=== PATIENT | male | born 1960 | race Caucasian/White ===

== ENCOUNTER 2017-02-05 05:45 | Outpatient (CLI) | payer OTHER ==
[~2017-02-05] VITALS: Ht 181.6 cm; Wt 97.5 kg
[~2017-02-05 05:45] MED LIST: NAPR220C11 PO; PANT40TA2 PO; PANT40TA3 PO; SUCR1TAB PO; SUCR1TAB36 PO; TESTOSTERONE TP; WRF5T PO
[2017-02-05] MEDS ORDERED: THYR16.2 PO (11:01)
[2017-02-05] MEDS ORDERED: ALOE25CA2 PO (11:01)
[2017-02-05] MEDS ORDERED: TURM500C7 PO (11:01)
== END 2017-02-05 11:06 ==
LOC: PREOP 05:45
PROVIDERS: ATTEND Surgery
DX: Z01.818 Encounter for other preprocedural examination (principal); Z12.11 Encounter for screening for malignant neoplasm of colon; K22.70 Barrett's esophagus without dysplasia

== ENCOUNTER 2017-02-09 07:30 | Day surgery (SDC) | payer OTHER ==
[~2017-02-09] VITALS: Ht 181.6 cm; Wt 97.5 kg
[~2017-02-09 07:30] MED LIST changes: +ALOE25CA2 PO; +THYR16.2 PO; +TURM500C7 PO
[2017-02-09] MEDS ORDERED: NS IV 1000 ML 1,000 ML IV STA (07:40)
[2017-02-09] MEDS ORDERED: NALOXONE 0.4 MG/ML 1 ML (NARCAN) VIAL IVP PRN (07:45)
[2017-02-09] MEDS ORDERED: FLUMAZENIL (ROMAZICON) 0.1 MG/ML 5 ML VIAL INJ PRN (07:45)
[2017-02-09] MEDS ORDERED: HURRICAINE EXT TUBE (BENZOCAINE) XX PRN (07:45)
[2017-02-09] MEDS ORDERED: fentaNYL INJECTION 100 MCG/2 ML AMP ONE (07:51)
[2017-02-09] MEDS ORDERED: proPOfol 200 MG/20 ML (DIPRIVAN) VIAL IV ONE (07:51)
[2017-02-09 07:55] VITALS: BP 128/77
[2017-02-09] MEDS ORDERED: LIDOCAINE TOPICAL 4% 50 ML BTL TP ONE (08:15)
[2017-02-09] MEDS ORDERED: MIDAZOLAM 2 MG/2 ML (VERSED) VIAL ONE (08:26)
--- NOTE | 2017-02-09 09:05 | Progress Note-Post Operative ---
Post-Operative Progess Note Surgeon (s)/Research Project Coordinator (s) Surgeon VILMA SMITH DO Research Project Coordinator: na Pre-Operative Diagnosis gerd, barretts Post-Operative Diagnosis antral ulcers, gastritis, hiatal hernia, short segment barretts, normal colon Procedure & Operative Findings Date of Procedure 02/09/17 Procedure Performed/Findings egd c biopsies, colonoscopy Anesthesia Type per [facility] Estimated Blood Loss Estimated blood loss (mL): scant Specimens/Packing Specimens Removed antrum, ge junction VILMA SMITH DO Feb 09, 2017 9:05 am
[2017-02-09 09:30] VITALS: BP 143/79
[2017-02-09] MEDS ORDERED: SUCR1TAB36 PO (09:30)
--- NOTE | 2017-02-09 09:31 | Discharge Inst-Simple/Standard ---
Discharge Inst-Standard Discharge Medications New, Converted or Re-Newed RX: RX on Chart Patient Instructions/Follow Up Plan of Care/Instructions/FU: Take protonix 40 mg once a day Take carafate 1 gm 4 times a day no Alcohol Repeat colonoscopy and EGD in one year Follow up with Dr. Smith in 2 weeks Activity as Tolerated: Yes Discharge Diet: No Restrictions RICHELLE LA APRN Feb 09, 2017 09:31
[2017-02-09 10:00] VITALS: BP 138/74
--- NOTE | 2017-02-09 10:17 | OPERATIVE REPORT ---
DATE OF SERVICE: 02/09/2017 PREOPERATIVE DIAGNOSES: Gastroesophageal reflux disease, Lucas's screening colonoscopy. POSTOPERATIVE DIAGNOSES: Antral ulcers, gastritis, hiatal hernia, short segment Lucas's, normal colon. PROCEDURE: EGD with biopsies and colonoscopy. SURGEON: Sarah ANESTHESIA: Per MDA. ESTIMATED BLOOD LOSS: Scant. SPECIMENS: Antrum and GE junction. INDICATIONS: The patient is a 56-year-old male with history of Lucas esophagus. He is due for a screening colonoscopy. He understands the risks and benefits of procedure and wishes to proceed with procedure. Consent was signed and in the chart. PROCEDURE: The patient was taken to the endoscopy suite, placed in left lateral recumbent position. Timeout was performed. The scope was inserted in mouth, down the esophagus, stomach and into the duodenum without difficulty. There were no polyps, masses or ulcerations within the duodenum. The scope was then slowly retracted back into the stomach where there were erythematous changes and small antral ulcers present. Biopsies of the antrum were obtained. Scope was also retroflexed, noting a small hiatal hernia. No other pathology noted. Scope was returned to its normal position, slowly withdrawn back into the distal esophagus, noting a very short segment of Lucas's. Biopsies were obtained in all 4 quadrants of the short segment of Lucas's. Scope was then slowly retracted until completely removed, noting no other pathology. Digital rectal exam was performed. There were no palpable polyps, masses or ulcerations. Scope was inserted in the rectum and advanced all the way to the cecum with minimal difficulty. Prep was adequate with irrigation and suction. The scope was then slowly retracted back. There were no polyps, masses or ulcerations within the cecum, ascending, transverse, descending and sigmoid colon. In the rectum, there is no pathology noted. Scope was also retroflexed, noting no other pathology. Scope was returned to its normal position, slowly withdrawn until completely removed. The patient tolerated procedure well without any complications and was taken to recovery room in stable condition. RECOMMENDATIONS: The patient will need repeat colonoscopy in 10 years, unless family history of colon cancer, for which it would then be 5 years. If he has any problems prior to that, he should be reevaluated at that time. In terms of his Lucas's, we will follow up on pathology in approximately 2 to 3 weeks. He has a history of ulcers, which we will also have him on the Protonix and Carafate and see how he is doing. If no improvement, we may need to double his Protonix for a short period of time. I would recommend repeating his EGD in 1 year. Job ID: [id number] DocumentID: [id number] Dictated Date: 02/09/2017 09:09:00 Bar Steward Date: 02/09/2017 10:16:31 Dictated By: VILMA SMITH DO
[2017-02-09 10:35] VITALS: BP 138/74
== END 2017-02-09 10:35 | disposition home or self-care (01) ==
LOC: ENDO 07:30
PROVIDERS: ATTEND Surgery
DX: Z12.11 Encounter for screening for malignant neoplasm of colon (principal); K22.70 Barrett's esophagus without dysplasia; K25.9 Gastric ulcer, unspecified as acute or chronic, without hemorrhage or perforation; K29.70 Gastritis, unspecified, without bleeding; K44.9 Diaphragmatic hernia without obstruction or gangrene

== ENCOUNTER → 2017-06-03 | Outpatient (CLI) | payer OTHER ==
[~2017-06-03] VITALS: Ht 180.3 cm; Wt 97.5 kg
[~2017-06-03] MED LIST changes: +methylPREDNISolone 80 MG/ML (DEPO MEDROL) VIAL ONE
[2017-06-03 13:08] VITALS: BP 140/72
[2017-06-03 13:34] VITALS: BP 137/72
--- NOTE | 2017-06-09 13:50 | OPERATIVE REPORT ---
DATE OF SERVICE: 06/03/2017 DIAGNOSIS: Lumbar radiculopathy. PROCEDURE: Fluoroscopic guided interlaminar epidural steroid injection. PROCEDURE IN DETAIL: After obtaining informed consent from the patient, the patient's chart was reviewed. The patient was then brought to the procedure room and placed in the prone position. A timeout was performed. The back was prepped with antiseptic solution and under fluoro guidance, the patient's lumbar spine was identified at the level of L5-S1. The L5-S1 vertebra was identified with fluoro guidance and approximately 2 mL of 1.5% lidocaine solution was used to anesthetize the skin directly down to the pedicle of the L5-S1 and under fluoroscopic guidance, the tract was anesthetized up to the interlaminar space and the ligamentum flavum. This needle was withdrawn. Then, a 20-gauge 3.5 inch Tuohy needle was then directed following the same tract that was anesthetized with the spinal needle. Using loss of resistance, the epidural space was identified and then the syringe was switched for contrast solution which was injected, approximately 1 mL. After secondary confirmation of epidural access, another syringe was placed and 80 mg of Depo-Medrol was injected. The Tuohy needle was then flushed out with approximately 2 mL of the normal saline used from the loss of resistance syringe. Band-Aids were applied to all the procedure sites. The patient tolerated the procedure well and was taken to the recovery room in stable condition. COMPLICATIONS: None. Job ID: [id number] DocumentID: [id number] Dictated Date: 06/08/2017 13:13:56 Glazier Helper Date: 06/09/2017 03:22:28 Dictated By: CHANTELL JONES DO
--- NOTE | 2017-06-10 13:27 | OPERATIVE REPORT ---
DATE OF SERVICE: 06/03/2017 DIAGNOSIS: Lumbar radiculopathy. PROCEDURE: Fluoroscopic guided interlaminar epidural steroid injection. PROCEDURE IN DETAIL: After obtaining informed consent from the patient, the patient's chart was reviewed. The patient was then brought to the procedure room and placed in the prone position. A timeout was performed. The back was prepped with antiseptic solution and under fluoro guidance, the patient's lumbar spine was identified at the level of L5-S1. The L5-S1 vertebra was identified with fluoro guidance and approximately 2 mL of 1.5% lidocaine solution was used to anesthetize the skin directly down to the pedicle of the L5-S1 and under fluoroscopic guidance, the tract was anesthetized up to the interlaminar space and the ligamentum flavum. This needle was withdrawn. Then, a 20-gauge 3.5 inch Tuohy needle was then directed following the same tract that was anesthetized with the spinal needle. Using loss of resistance, the epidural space was identified and then the syringe was switched for contrast solution which was injected, approximately 1 mL. After secondary confirmation of epidural access, another syringe was placed and 80 mg of Depo-Medrol was injected. The Tuohy needle was then flushed out with approximately 2 mL of the normal saline used from the loss of resistance syringe. Band-Aids were applied to all the procedure sites. The patient tolerated the procedure well and was taken to the recovery room in stable condition. COMPLICATIONS: None. Job ID: [id number] DocumentID: [id number] Dictated Date: 06/08/2017 13:13:56 Historic Site Administrator Date: 06/09/2017 03:42:49 Dictated By: CHANTELL JONES DO
== END ==
LOC: CARD 08:05
PROVIDERS: ATTEND Pain Medicine Interventional Pain Medicine
DX: M54.16 Radiculopathy, lumbar region (principal); M51.37 Other intervertebral disc degeneration, lumbosacral region
CPT/HCPCS: 62323

== ENCOUNTER 2017-08-24 11:32 | Emergency (ER) | payer OTHER ==
[~2017-08-24] VITALS: Ht 180.3 cm; Wt 99.8 kg
[~2017-08-24 11:32] MED LIST changes: -methylPREDNISolone 80 MG/ML (DEPO MEDROL) VIAL ONE
[2017-08-24] MEDS ORDERED: OXYCODONE (12:16)
[2017-08-24] MEDS ORDERED: RT-ALBUINH IH (12:44)
[2017-08-24] MEDS ORDERED: METH4TAB PO (12:44)
[2017-08-24] MEDS ORDERED: BENZ-13 PO (12:44)
[2017-08-24] MEDS ORDERED: D-ME118S7 PO (12:44)
[2017-08-24] MEDS ORDERED: OSLT75C PO (12:44)
--- NOTE | 2017-08-24 12:44 | ED Cough/URI ---
General Chief Complaint: Cough/Cold/Flu Symptoms Stated Complaint: COUGH,CONGESTION Nursing Triage Note: AMB TO ROOM REORTS HAS HAD COUGH CONGESTION FOR 2 DAYS AND THE OXYCODONE NOT HELPING. Source: patient History of Present Illness Time seen by provider: 12:10 Initial Comments C/O COUGH AND CONGESTION SINCE YESTERDAY HAS HAD SUBJECTIVE FEVER C/O MILD HEADACHE C/O BODY ACHES PT'S MAIN COMPLAINT IS GENERALIZED BACK PAIN --PT HAS CHRONIC BACK PAIN AND TAKES OXYCODONE DAILY FOR IT, BUT STATES IT IS NOT HELPING NO PARESTHESIAS OR MOTOR DEFICITS NO RADIATION OF PAIN NO PROBLEMS URINATING NO CHEST PAIN OR SHORTNESS OF BREATH PT STATES HE DOES HAVE ASTHMA BUT HAS NOT USED HIS INHALER IN A VERY LONG TIME AND IT A LONG TIME AGO. PT DID RECEIVE A FLU VACCINATION THIS YEAR PT'S IS CURRENTLY UNDERGOING CHEMO FOR CANCER--NEXT TREATMENT IS DUE TOMORROW PT STATES SHE IS NOT HAVING ANY SYMPTOMS PT STATES THAT HER ONCOLOGIST GAVE HER A PRESCRIPTION FOR TAMIFLU,IN CASE SHE STARTED HAVING SYMPTOMS-- BUT SHE HAS NOT TAKEN/FILLED IT YET PCP: DR. MAKI Allergies and Home Medications Allergies Coded Allergies: No Known Drug Allergies (Verified , 02/09/17) Home Medications Albuterol Sulfate 1 Puff Puff, 2 PUFF IH Q4H, #1 Prescribed by: HUGH ELLIS on 08/24/17 1244 Aloe Vera 25 Mg Capsule, 25 MG PO DAILY, (Reported) Benzonatate 100 Mg Capsule, 1-2 TAB PO TID, #30 Prescribed by: HUGH ELLIS on 08/24/17 1244 D-Methorphan Hb/Prometh HCl 118 Ml Syrup, 1-2 TSP PO Q4H, #120 Prescribed by: HUGH ELLIS on 08/24/17 1244 Methylprednisolone 4 Mg Tab.ds.pk, 4 MG PO UD, #1 Prescribed by: HUGH ELLIS on 08/24/17 1244 Oseltamivir Phosphate 75 Mg Cap, 75 MG PO BID, #10 Prescribed by: HUGH ELLIS on 08/24/17 1244 Pantoprazole Sodium 40 Mg Tablet.dr, 40 MG PO DAILY, (Reported) [Oxycodone] , (Reported) [Testosterone Cream] , TP DAILY, (Reported) Constitutional: see HPI, fever, weakness EENTM: see HPI, nose congestion, No throat pain Respiratory: see HPI, cough, No short of breath, No wheezing Cardiovascular: no symptoms reported, No chest pain Gastrointestinal: no symptoms reported, No nausea, No vomiting Genitourinary: no symptoms reported Musculoskeletal: see HPI, back pain, other (BODY ACHES) Skin: no symptoms reported, No rash Psychiatric/Neurological: See HPI, Headache, Denies Numbness, Denies Paresthesia, Denies Tingling, Denies Tremors, Denies Weakness Hematologic/Lymphatic: No Symptoms Reported Immunological/Allergic: no symptoms reported Past [place]-Bjoqig-Zbfcje Hx Patient Social History Alcohol Use: Denies Use Recreational Drug Use: No Smoking Status: Never a Smoker Recent Foreign Travel: No Contact w/Someone Who Travel: No Recent Infectious Disease Expo: No Recent Hopitalizations: No Seasonal Allergies Seasonal Allergies: Yes Surgeries History of Surgeries: Yes (LEFT KNEE SCOPE X2, SHOULDER SURGERY) Surgeries: Orthopedic Respiratory History of Respiratory Disorde: Yes Respiratory Disorders: Asthma Cardiovascular History of Cardiac Disorders: Yes Cardiac Disorders: Deep Vein Thrombosis Neurological History of Neurological Disord: No Reproductive System Hx Reproductive Disorders: No Sexually Transmitted Disease: No HIV/AIDS: No Gastrointestinal History of Gastrointestinal Di: Yes Gastrointestinal Disorders: Gastroesophageal Reflux, Lucas's Esophagus, Diverticulosis, Polyps, Esophagitis Musculoskeletal History of Musculoskeletal Dis: Yes (BULGING DISCS) Musculoskeletal Disorders: Degenerate Disk Disease, Arthritis, Chronic Back Pain Endocrine History of Endocrine Disorders: Yes (LOW TESTOSTERONE) HEENT History of HEENT Disorders: No Loss of Vision: Bilateral Hearing Impairment: Denies Cancer History of Cancer: No Psychosocial History of Psychiatric Problem: No Integumentary History of Skin or Integumenta: No Blood Transfusions History of Blood Disorders: No Adverse Reaction to a Blood Tr: No (N/A) Physical Exam Vital Signs Vital Sign - Last 12Hours 08/24/17 08/24/17 12:01 12:55 Temp 97.3 Pulse 100 Resp 18 B/P (MAP) 127/77 (94) Pulse Ox 98 O2 Delivery Room Air Capillary Refill : Less Than 3 Seconds General Appearance: WD/WN, no apparent distress (BUT SQUATTING ON FLOOR, LEANING OVER THE BED) HEENT: PERRL/EOMI, normal ENT inspection, TMs normal, pharynx normal Neck: non-tender, full range of motion, supple, normal inspection Respiratory: normal breath sounds, no respiratory distress, no accessory muscle use Cardiovascular: regular rate, rhythm, no edema, no JVD, no murmur Gastrointestinal: normal bowel sounds, non tender, soft Extremities: normal inspection, no pedal edema, normal capillary refill Neurologic/Psychiatric: tower technician II-XII nml as tested, no motor/sensory deficits, alert, normal mood/affect, oriented x 3 Skin: normal color, warm/dry, No rash Progress/Results/Core Measures Suspected Sepsis Recent Fever Within 48 Hours: No Infection Criteria Present: None New/Unexplained Altered Menta: No Sepsis Screen: No Definite Risk Sepsis Diagnosis: SIRS Temperature:97.3 Pulse: 100 Respiratory Rate: Blood Pressure 127 /77 Mean: 94 Results/Orders Micro Results Microbiology 08/24/17 Influenza Types A,B Antigen (LENIN) - Final, Complete My Orders Orders - HUGH ELLIS DO Influenza A And B Antigens (08/24/17 12:09) Methylprednisolone Sod Succ (Solu-Medrol (08/24/17 12:45) Medications Given in ED Current Medications Medications Dose Ordered Sig/Mohit Route Start Time Stop Time Status Last Admin Dose Admin Methylprednisolone Sodium Succinate 125 mg ONCE ONCE IM 08/24/17 12:45 08/24/17 12:46 DC 08/24/17 12:52 125 MG Vital Signs/I&O Vital Sign - Last 12Hours 08/24/17 08/24/17 12:01 12:55 Temp 97.3 97.3 Pulse 100 100 Resp 18 B/P (MAP) 127/77 (94) Pulse Ox 98 98 O2 Delivery Room Air Capillary Refill : Less Than 3 Seconds Blood Pressure Mean: 94 Progress Note : Progress Note PT REQUESTS PREDNISONE FOR HIS BACK PAIN--STATES IT ALWAYS HELPS ADVISED PT THAT SHOULD START TAMIFLU TODAY, AND SHE SHOULD CONTACT HER ONCOLOGIST TODAY REGARDING TREATMENT SCHEDULED FOR TOMORROW. Departure Impression Impression: Primary Impression: Influenza B Additional Impression: Exacerbation of chronic back pain Disposition: 01 HOME, SELF-CARE Condition: Stable Departure-Patient Inst. Referrals: MI MAKI MD (PCP/Family) Primary Care Physician Patient Instructions: CHRONIC PAIN, Flu, Adult (DC) Add. Discharge Instructions: LOTS OF CLEAR LIQUIDS--WATER, BROTH, JELLO, GATORADE TYLENOL AND MOTRIN NEEDED FOR PAIN OR FEVER CONTINUE YOUR OXYCODONE NEEDED FOR PAIN FOLLOW UP WITH YOUR DR IN 3-4 DAYS IF NO BETTER All discharge instructions reviewed with patient and/or family. Voiced understanding. Scripts Albuterol Sulfate (PROAIR HFA) 1 Puff Puff 2 PUFF IH Q4H for BREATHING, #1 UNIT Prov: HUGH ELLIS DO 08/24/17 D-Methorphan Hb/Prometh HCl (Promethazine-Dm Syrup) 118 Ml Syrup 1-2 TSP PO Q4H for Cough, #120 ML Prov: HUGH ELLIS DO 08/24/17 Benzonatate (Tessalon Perle) 100 Mg Capsule 1-2 TAB PO TID for Cough, #30 CAP Prov: HUGH ELLIS DO 08/24/17 Methylprednisolone (Medrol) 4 Mg Tab.ds.pk 4 MG PO UD, #1 PKG Prov: HUGH ELLIS DO 08/24/17 Oseltamivir Phosphate (Tamiflu) 75 Mg Cap 75 MG PO BID, #10 CAP Prov: HUGH ELLIS DO 08/24/17 HUGH ELLIS DO Aug 24, 2017 12:44
[2017-08-24] MEDS ORDERED: methylPREDNISolone 125 MG (Solu-MEDROL) VIAL IM ONE (12:45)
[2017-08-24 12:55] VITALS: BP 127/77
== END 2017-08-24 12:55 | disposition home or self-care (01) ==
LOC: EDUNIT# 11:32 → ER 11:34
DX: J10.1 Influenza due to other identified influenza virus with other respiratory manifestations (principal); M54.5 Low back pain; G89.29 Other chronic pain; J45.909 Unspecified asthma, uncomplicated; K21.9 Gastro-esophageal reflux disease without esophagitis; Z86.718 Personal history of other venous thrombosis and embolism
CPT/HCPCS: 87804; 99284

== ENCOUNTER → 2019-01-18 | Outpatient (CLI) | payer OTHER ==
[~2019-01-18] MED LIST changes: +BENZ100C18 PO; +D-ME118S7 PO; +METH4TAB PO; +OSLT75C PO; +OXYCODONE; +RT-ALBUINH IH
== END | disposition home or self-care (01) ==
LOC: PREOP 05:46
PROVIDERS: ATTEND Internal Medicine
DX: Z01.818 Encounter for other preprocedural examination (principal)

== ENCOUNTER 2019-01-19 06:56 | Day surgery (SDC) | payer OTHER ==
--- NOTE | 2019-01-18 06:11 | HISTORY AND PHYSICAL ---
DATE OF SERVICE: EGD HISTORY AND PHYSICAL HISTORY OF PRESENT ILLNESS: The patient is a 58-year-old white male seen in the office on the , who noted that he was feeling well on Wednesday, went for a long bike ride in the [place] without difficulty. He had a hamburger and fries, did not note any problems with that meal on Wednesday afternoon, came home, had a piece of ham, and rather abruptly after eating noted central and lower precordial chest pain with a sensation of fullness. Initially, water would not go down and there is some regurgitation. Several hours later, he still noted pain, but was able to get liquids down without difficulty. He has remained on liquids since. He has been able to swallow pantoprazole and he has been dissolving Carafate and has resumed Carafate. He reports he was told that he had a twisted hiatal hernia by Dr. Smith as well as Lucas's change in his esophagus two or three years ago at the time of his last endoscopy. He denies any past history of esophageal stricture with a need for esophageal dilatation. He is not aware of any family history for esophageal cancer or anyone else in the family with Lucas's change. He has had difficulty with keeping his weight down and denies melena or bright red blood per rectum. PAST SURGICAL HISTORY: He has had no past GI tract surgeries. PAST MEDICAL HISTORY: Significant for lumbar radiculopathy predominantly L4-L5 and L5-S1, left side, but he has had epidural injections for the last one over a year ago. He has been on testosterone therapy in the past, but to my knowledge this was done at a wellness center and he has not had any documented low testosterone levels in our office and is not currently on replacement therapy after discussion. He has a history of reactive depression following the loss of his tragically the breast cancer in her mid 50s. PHYSICAL EXAMINATION: GENERAL: Revealed somewhat anxious appearing white male, in no acute distress. He is able to swallow water without difficulty with no choking nor coughing. VITAL SIGNS: Blood pressure was 114/70 with a heart rate of 76 and regular. HEENT: Unremarkable. He is a Mallampati class 2 oropharyngeal configuration with no pharyngeal erythema or exudate being noted. NECK: Revealed no JVD, adenopathy or bruits. CHEST: Clear to auscultation. CARDIOVASCULAR: Reveals regular rate and rhythm without murmur, S3 or S4. ABDOMEN: Soft, supple without mass or organomegaly. There is epigastric discomfort to palpation without rebound or guarding. No evidence for abdominal aortic aneurysm is noted to palpation. Bowel sounds are positive. No bruits are noted. EXTREMITIES: Reveal no cyanosis, clubbing or edema. ASSESSMENT AND PLAN: For surveillance purposes due to the past Lucas's as well as findings suspicious for the possibility of esophageal stricture with dysphagia to solids, the patient is set up for an EGD , the . He is to continue soft solids only and advised to increase pantoprazole to 40 mg b.i.d. I discussed that dilatation may be necessary and that we would be obtaining biopsies and discussed Lucas's issues further as well as hiatal hernia issues further. He will continue to sleep with the head of his bed elevated. Job ID: [id number] DocumentID: [id number] Dictated Date: 01/17/2019 11:13:08 Keysmith Date: 01/17/2019 11:59:47 Dictated By: CARLOS BIRCH MD
[~2019-01-19] VITALS: Ht 180.3 cm; Wt 99.8 kg
[2019-01-19] MEDS ORDERED: D5 LR IV SOLUTION 1,000 ML IV ONE (07:07)
[2019-01-19] MEDS ORDERED: LIDOCAINE JELLY 2% 6 ML SYRINGE MM PRN (07:15)
[2019-01-19] MEDS ORDERED: HURRICAINE EXT TUBE (BENZOCAINE) XX PRN (07:15)
[2019-01-19] MEDS ORDERED: D5 LR IV SOLUTION 1,000 ML IV STA (07:15)
[2019-01-19] MEDS ORDERED: MIDAZOLAM 2 MG/2 ML (VERSED) VIAL IVP ONE (07:15)
[2019-01-19] MEDS ORDERED: fentaNYL INJECTION 100 MCG/2 ML AMP IVP ONE (07:15)
[2019-01-19 07:25] VITALS: BP 140/80
[2019-01-19] MEDS ORDERED: SUCR1TAB36 PO (07:29)
[2019-01-19] MEDS ORDERED: MIDAZOLAM 2 MG/2 ML (VERSED) VIAL ONE ×5 (07:34→08:41)
[2019-01-19] MEDS ORDERED: LIDOCAINE JELLY 2% 6 ML SYRINGE ONE (07:34)
[2019-01-19] MEDS ORDERED: fentaNYL INJECTION 100 MCG/2 ML AMP ONE (07:34)
[2019-01-19] MEDS ORDERED: HURRICAINE EXT TUBE (BENZOCAINE) ONE (07:35)
--- NOTE | 2019-01-19 08:57 | Pre-Op Note & Conscious Sedat ---
Pre-Operative Progress Note H&P Reviewed The H&P was reviewed, patient examined and no changes noted. Date H&P Reviewed: January 19, 2019 Time H&P Reviewed: 07:20 Conscious Sedation Pre-Proced ASA Score 1 For ASA 3 and 4: Consider anesthesia and medical clearance. Also, for patients with a history of failed moderate sedation consider anesthesia. Airway Lungs Heart ASA score ASA 1: a normal healthy patient ASA 2: a patient with a mild systemic disease (mid diabetes, controlled hypertension, obesity ASA 3: a patient with a severe systemic disease that limits activity (angina, COPD, prior Myocardial infarction) ASA 4: a patient with an incapacitating disease that is a constant threat to life (CHF, renal failure) ASA 5: a moribund patient not expected to survive 24 hrs. (ruptured aneurysm) ASA 6: a declared brain- patient whose organs are being harvested. For emergent operations, add the letter E after the classification Mallampati Classification Grade 3 Sedation Plan Analgesia, Amnesia, Plan communicated to team members, Discussed options with patient/fam, Discussed risks with patient/fam The patient is an appropriate candidate to undergo the planned procedure, sedation, and anesthesia. The patient immediately re-assessed prior to indication. CARLOS BIRCH MD January 19, 2019 08:57
[2019-01-19 09:15] VITALS: BP 138/69
[2019-01-19 09:40] VITALS: BP 116/74
[2019-01-19 09:50] VITALS: BP 116/74
--- NOTE | 2019-01-19 21:45 | OPERATIVE REPORT ---
DATE OF SERVICE: EGD SUMMARY EGD is performed for evaluation of epigastric and right upper quadrant pain with dysphagia and reported past history of Lucas's. The patient was placed in the left lateral decubitus position. The endoscope was inserted in the oral cavity and under direct visualization, esophagus was intubated. The endoscope was passed down the esophagus through the stomach and the second portion of the duodenum. Careful inspection was made as the endoscope was withdrawn. The patient tolerated the procedure. FINDINGS: The posterior pharynx, arytenoid aperture and true and false vocal folds were unremarkable. No evidence for erythema was noted. The epiglottis was unremarkable. Proximal and mid esophagus were unremarkable. There is a small sliding hiatal hernia present with questionable short segment Lucas's. No evidence for nodularity was noted. No evidence for erosive esophagitis or stricture formation is noted. There is no evidence to suggest a mechanical obstruction. Four quadrant biopsies were obtained from or just below the Z line that was noted 38 cm from the incisoral orifice. The cardia, fundus, antrum, pylorus, pyloric channel, duodenal bulb and second portion of duodenum were unremarkable with no evidence for gastritis or peptic ulcer disease. ASSESSMENT: Small sliding hiatal hernia is present with questionable short segment Lucas's change without evidence for erosive esophagitis or obstruction. Advised the patient continue proton pump inhibitor therapy. We will await biopsy results and if it continues to be symptomatic, we will need to look into a biliary pathology, cholecystitis etc. The patient was advised to adhere to a low fat diet in the interim and I am his primary care provider. Job ID: [id number] DocumentID: [id number] Dictated Date: 01/19/2019 18:07:00 Materials Buyer Date: 01/19/2019 21:44:44 Dictated By: CARLOS BIRCH MD [facility]
== END 2019-01-19 09:50 | disposition home or self-care (01) ==
LOC: ENDO 06:56
PROVIDERS: ATTEND Internal Medicine
DX: K21.9 Gastro-esophageal reflux disease without esophagitis (principal); K44.9 Diaphragmatic hernia without obstruction or gangrene
CPT/HCPCS: 88305

== ENCOUNTER 2021-07-21 17:18 | Emergency (ER) | payer OTHER ==
[~2021-07-21] VITALS: Ht 182.9 cm; Wt 102.8 kg
[~2021-07-21 17:18] MED LIST changes: -D-ME118S7 PO; -PANT40TA3 PO; +PANT40TA52 PO; +PROM118S5 PO
[2021-07-21] MEDS ORDERED: LIDOCAINE 1% INJ 20 ML 20 ML VIAL INJ STA (17:51)
--- NOTE | 2021-07-21 17:52 | ED Upper Extremity ---
General Chief Complaint: Laceration Stated Complaint: LT INDEX FINGER LAC Nursing Triage Note: PT AMBULATE TO ROOM FS01 WITH C/O LAC TO LEFT INDEX FINGER. PT STATES HE WAS "MESSING" WITH HIS POCKET KNIFE AND IT SLIPPED AND CUT FINGER. Source: patient History of Present Illness Date Seen by Provider: Jul 21, 2021 Time Seen by Provider: 17:27 Initial Comments 60-year-old male presenting with laceration to the left index finger. He reports he was messing with his pocket knife and it was really sharp so it slipped and cut his finger. He denies any numbness or tingling. He has last had a tetanus shot more than 5 years ago. He denies any other injuries. He was having difficulty getting the bleeding controlled so he came to the ED. This occurred just prior to arrival. Onset: just prior to arrival Severity: mild Pain/Injury Location: left 2nd finger Method of Injury: incised Modifying Factors: Worse With Movement Allergies and Home Medications Allergies Coded Allergies: No Known Drug Allergies (Verified , 02/09/17) Patient Home Medication List Home Medication List Reviewed: Yes Albuterol Sulfate (Proair Hfa) 1 Puff Puff, 2 PUFF IH Q4H Prescribed by: HUGH ELLIS on 08/24/17 1244 Pantoprazole Sodium (Pantoprazole Sodium) 40 Mg Tablet.dr, 40 MG PO DAILY, (Reported) Entered as Reported by: CHRISTI KEENAN on 12/26/15 1250 Sucralfate (Carafate) 1 Gm Tablet, 1 GM PO QID, (Reported) Entered as Reported by: KELLIE HERRERA on 01/19/19 0729 Review of Systems Constitutional: No chills, No fever EENTM: no symptoms reported Respiratory: no symptoms reported Cardiovascular: no symptoms reported Gastrointestinal: no symptoms reported Genitourinary: no symptoms reported Musculoskeletal: see HPI Skin: see HPI Psychiatric/Neurological: No Symptoms Reported; Denies Numbness, Denies Paresthesia Past Rwufkgh-Htrbmn-Wvbqel Hx Patient Social History Tobacco Use?: No Smoking Status: Never a Smoker Smokeless Tobacco Frequency: Never a User Use of E-Cig and/or Vaping Carlos Eduardo: Never a User Substance use?: No Alcohol Use?: Yes Alcohol Frequency: Once in a while Pt feels they are or have been: No Seasonal Allergies Seasonal Allergies: Yes Past Medical History Surgeries: Yes (LEFT KNEE SCOPE X2, SHOULDER SURGERY) Orthopedic Respiratory: Yes Asthma Cardiac: Yes Deep Vein Thrombosis Neurological: No Reproductive Disorders: No Sexually Transmitted Disease: No HIV/AIDS: No Gastrointestinal: Yes Gastroesophageal Reflux, Lucas's Esophagus, Diverticulosis, Polyps, Es ophagitis Musculoskeletal: Yes (BULGING DISCS) Degenerate Disk Disease, Arthritis, Chronic Back Pain Endocrine: Yes (LOW TESTOSTERONE) HEENT: No Loss of Vision: Bilateral Hearing Impairment: Denies Cancer: No Psychosocial: No Integumentary: No Blood Disorders: No Adverse Reaction/Blood Tranf: No (N/A) Physical Exam Vital Signs Vital Signs - First Documented 07/21/21 07/21/21 17:37 18:52 Temp 36.2 Pulse 74 Resp 17 B/P (MAP) 146/62 (90) Pulse Ox 98 O2 Delivery Room Air Capillary Refill : Less Than 3 Seconds Height, Weight, BMI Height: 5'11.00" Weight: 220lbs. 0.0oz. [id number]; 30.00 BMI Method:Stated General Appearance: WD/WN, no apparent distress Cardiovascular: normal peripheral pulses Wrist: Yes normal inspection, Yes non-tender, Yes no evidence of injury, Yes normal ROM Hand: normal ROM, Left, laceration (index finger distal phalanx lateral a spect), soft tissue tenderness (mild at the site of laceration) Neurologic/Tendon: normal sensation, normal motor functions, normal tendon functions Neurologic/Psychiatric: senior physician II-XII nml as tested, no motor/sensory deficits, alert, oriented x 3 Skin: normal color, warm/dry Procedures/Interventions Wound Location: Upper Extremities (left index finger) Wound Length (cm): 1.4 Wound's Depth, Shape: flap (V shaped flap), sub Q Wound Explored: clean Anesthesia: 1% Lidocaine (6 mL digital ring block) Volume Anesthetic (ccs): 6 Suture: Ethlion Suture Size: 5-0 Number of Sutures: 3 Layer Closure?: 1 Sterile Dressing Applied?: Yes Progress After obtaining verbal consent from the patient the wound was cleaned with chlorhexidine and saline. The finger was anesthetized using 1% plain lidocaine in a digital ring block. A total of 6 mL were infiltrated. Then a turnicot was applied to help with hemostasis and bleeding as well as holding the anesthetic in place. Using 5-0 Ethilon a total of 3 simple interrupted stitches were placed in the flap to hold it down. One at the tip and one on each of the sides. Patient tolerated procedure well without any immediate complication. A turnicot was removed and wound was cleaned. A clean sterile dressing was applied by the nurses. Counseled on follow-up and return precautions. Keep dry for the first 24 hours then may wash with soap and water but do not soak it. May apply antibiotic ointment and a new dressing 2-3 times a day as needed. Stitches out in at least 10 to 14 days. Tetanus booster was updated during this visit Progress/Results/Core Measures Results/Orders My Orders Orders - ELVER CHICAS MD Lidocaine 1% Inj 20 Ml (Xylocaine 1% Inj (07/21/21 17:51) Dipht,Pertuss(Acell),Tet Adult (Boostrix (07/21/21 18:00) Suture Set At Bedside (07/21/21 17:51) Medications Given in ED Current Medications Medications Dose Ordered Sig/Mohit Route Start Time Stop Time Status Last Admin Dose Admin Diphtheria/ Tetanus/Acell Pertussis 0.5 ml ONCE ONCE IM 07/21/21 18:00 07/21/21 18:01 DC 07/21/21 18:16 0.5 ML Vital Signs/I&O 07/21/21 07/21/21 17:37 18:52 Temp 36.2 Pulse 74 78 Resp 17 16 B/P (MAP) 146/62 (90) 137/88 Pulse Ox 98 O2 Delivery Room Air Room Air Blood Pressure Mean: 90 Progress Progress Note #1: Progress Note Patient stated it was more than 5 years since his last tetanus. Patient will be given update here. He was soaking his finger in chlorhexidine and sterile water while I had to perform another procedure on another patient that arrived prior to him. Progress Note #2: Progress Note Patient tolerated procedure to repair the laceration well without any immediate complications. Counseled on follow-up and return precautions. Stitches out in 10 to 14 days. Departure Impression Primary Impression: Laceration of left index finger without foreign body without damage to nail Qualified Codes: S61.211A - Laceration without foreign body of left index finger without damage to nail, initial encounter Disposition: 01 HOME, SELF-CARE Condition: Stable Departure-Patient Inst. Decision time for Depature: 18:45 Referrals: CARLOS BIRCH MD (PCP/Family) Primary Care Physician Patient Instructions: Laceration Repair With Stitches ED, Common Finger Injuries ED Add. Discharge Instructions: Keep the wound clean and dry for the first 24 hours. After that you could remove the dressing and wash your hands like normal. No soaking or keeping your hands in water for longer than it takes to clean them. After the first 24 hours you could wash with soap and water and then apply antibiotic ointment and cover with a dressing especially if the wound might get dirty. If signs of infection such as redness streaking up your finger and hand, pus draining from the wound, fever of 101 Fahrenheit then be seen sooner otherwise follow-up through the clinic or ER for removal of stitches The stitches should come out in 10 to 14 days and can be removed in the clinic or here in the ER. All discharge instructions reviewed with patient and/or family. Voiced understanding. ELVER CHICAS MD Jul 21, 2021 17:52
[2021-07-21] MEDS ORDERED: TETANUS,DIPTH,PERTUSS P/F (BOOSTRIX) 0.5 ML VIAL IM ONE (18:00)
[2021-07-21 18:52] VITALS: BP 137/88
== END 2021-07-21 18:52 | disposition home or self-care (01) ==
LOC: EDUNIT# 17:18 → ER FS 17:19
DX: S61.211A Laceration without foreign body of left index finger without damage to nail, initial encounter (principal); J45.909 Unspecified asthma, uncomplicated; K21.9 Gastro-esophageal reflux disease without esophagitis; Z23 Encounter for immunization; Z79.899 Other long term (current) drug therapy; W26.0XXA Contact with knife, initial encounter
CPT/HCPCS: 90715; 99281

== ENCOUNTER → 2023-06-14 | Outpatient (CLI) | payer OTHER ==
[~2023-06-14] MED LIST changes: +ALBU8.5H6 IH; -RT-ALBUINH IH
[2023-06-14 11:51] LABS: BASOPHILS % (AUTO) 0 % (0-10); EOSINOPHILS % (AUTO) 0 % (0-10); HEMATOCRIT 46 % (40-54); HEMOGLOBIN 15.9 g/dL (13.3-17.7); LYMPHOCYTES # (AUTO) 0.5 10^3/uL (1.0-4.0); LYMPHOCYTES % (AUTO) 4 % (12-44); MEAN CORPUSCULAR HEMOGLOBIN 31 pg (25-34); MEAN CORPUSCULAR HGB CONC 35 g/dL (32-36); MEAN CORPUSCULAR VOLUME 89 fL (80-99); MEAN PLATELET VOLUME 8.8 fL (9.0-12.2); MONOCYTES # (AUTO) 0.3 10^3/uL (0.0-1.0); MONOCYTES % (AUTO) 3 % (0-12); NEUTROPHILS # (AUTO) 10.5 10^3/uL (1.8-7.8); NEUTROPHILS % (AUTO) 92 % (42-75); PLATELET COUNT 168 10^3/uL (130-400); WHITE BLOOD COUNT 11.3 10^3/uL (4.3-11.0)
[2023-06-14 12:22] LABS: BAND NEUTROPHILS 0 %; BASOPHILS % (MANUAL) 0 %; EOSINOPHILS % (MANUAL) 0 %; LYMPHOCYTES % (MANUAL) 5 %; MONOCYTES % (MANUAL) 2 %; NEUTROPHILS % (MANUAL) 93 %; RBC MORPH NORMAL
--- NOTE | 2023-06-14 12:32 | Diagnostic Imaging Report ---
PROCEDURE: US left lower extremity venous. TECHNIQUE: Multiple real-time grayscale images were obtained over the left lower extremity in various projections. Additional duplex Doppler and color Doppler images were also obtained. INDICATION: Pain and swelling. FINDINGS: There is nonocclusive deep venous thrombosis beginning in the distal femoral vein extending distally to the popliteal vein and calf veins. Flow is seen within the posterior tibial veins however not the peroneal vein. There does appear to be a prominent collateral extending off the distal femoral vein. There are no abnormal fluid collections or masses IMPRESSION: Nonocclusive thrombus in the distal femoral vein and popliteal vein and peroneal vein. Dictated by: Dictated on workstation # [id number]
== END ==
LOC: RAD 11:37
PROVIDERS: ATTEND Registered Nurse
DX: I82.412 Acute embolism and thrombosis of left femoral vein (principal); I82.452 Acute embolism and thrombosis of left peroneal vein; I82.432 Acute embolism and thrombosis of left popliteal vein
CPT/HCPCS: 36415; 85007; 85027; 85379

== ENCOUNTER 2023-06-19 11:28 | Emergency (ER) | payer OTHER ==
[~2023-06-19] VITALS: Ht 180.4 cm; Wt 106.6 kg
[2023-06-19] MEDS ORDERED: ASPIRIN 81 MG CHEWABLE TABLET PO ONE (11:45)
--- NOTE | 2023-06-19 11:48 | ED Respiratory ---
General Chief Complaint: Respiratory Problems Stated Complaint: SOA Source: patient Exam Limitations: no limitations (KERRY GALVAN) History of Present Illness Date Seen by Provider: Jun 19, 2023 Time Seen by Provider: 11:46 Initial Comments Patient is a 62-year-old male with a history of asthma who presents ED with chest pain and shortness of breath. This started 1 hour ago. Started having pressure in the center part of his chest. Rates pain 2 out of 10. Started developing shortness of breath. Denies cough. Patient states he was diagnosed with DVT last week of his left leg. Currently on Eliquis 5 mg twice a day. Patient denies of any known cardiac history history of COPD or smoking. Denies of any cough, runny nose, fever, chills, nausea vomiting or flulike symptoms. Patient is concern for potential PE. Patient denies hypertension, diabetes, high cholesterol, smoking. Denies of any wheezing. (KERRY GALVAN) Allergies and Home Medications Allergies Coded Allergies: No Known Drug Allergies (Verified , 02/09/17) Patient Home Medication List Home Medication List Reviewed: Yes (KERRY GALVAN) Albuterol Sulfate (Ventolin Hfa) 1 Puff Puff, 2 PUFF IH Q4H Prescribed by: HUGH ELLIS on 08/24/17 1244 Pantoprazole Sodium (Pantoprazole Sodium) 40 Mg Tablet.dr, 40 MG PO DAILY, (Reported) Entered as Reported by: CHRISTI KEENAN on 12/26/15 1250 Sucralfate (Carafate) 1 Gm Tablet, 1 GM PO QID, (Reported) Entered as Reported by: KELLIE HERRERA on 01/19/19 0729 Review of Systems Review of Systems Constitutional: No chills, No diaphoresis, No fever, No malaise, No weakness EENTM: No hearing loss, No ear pain, No blurred vision Respiratory: No cough; dyspnea on exertion Cardiovascular: chest pain Gastrointestinal: No abdominal pain, No diarrhea, No nausea, No vomiting Genitourinary: No decreased output, No discharge Musculoskeletal: No back pain, No joint pain, No joint swelling, No muscle pain Skin: No change in color, No change in hair/nails (KERRY GALVAN) All Other Systems Reviewed Negative Unless Noted: Yes (KERRY GALVAN) Past Sxeedsx-Cepioj-Wdrkbl Hx Seasonal Allergies Seasonal Allergies: Yes (KERRY GALVAN) Past Medical History Surgeries: Yes (LEFT KNEE SCOPE X2, SHOULDER SURGERY) Orthopedic Respiratory: Yes Asthma Cardiac: Yes Deep Vein Thrombosis Neurological: No Reproductive Disorders: No Sexually Transmitted Disease: No HIV/AIDS: No Gastrointestinal: Yes Gastroesophageal Reflux, Lucas's Esophagus, Diverticulosis, Polyps, Esophagitis Musculoskeletal: Yes (BULGING DISCS) Degenerate Disk Disease, Arthritis, Chronic Back Pain Endocrine: Yes (LOW TESTOSTERONE) HEENT: No Loss of Vision: Bilateral Hearing Impairment: Denies Cancer: No Psychosocial: No Integumentary: No Blood Disorders: No Adverse Reaction/Blood Tranf: No (N/A) (KERRY GALVAN) Physical Exam Vital Signs - First Documented 06/19/23 06/19/23 11:36 11:54 Temp 37.0 Pulse 89 Resp 16 B/P (MAP) 157/86 (109) Pulse Ox 97 O2 Delivery Room Air (GRAEME KELLER MD) Capillary Refill : (KERRY GALVAN) Height: 5'11.00" Weight: 220lbs. 0.0oz. [id number]; 30.00 BMI Method:Stated General Appearance: WD/WN, no apparent distress Eyes: Bilateral Eye Normal Inspection, Bilateral Eye PERRL, Bilateral Eye EOMI HEENT: PERRL/EOMI, normal ENT inspection, TMs normal, pharynx normal Neck: non-tender, full range of motion, supple Respiratory: chest non-tender, lungs clear, normal breath sounds, no respiratory distress, no accessory muscle use Cardiovascular: regular rate, rhythm, no edema, no gallop, no JVD Gastrointestinal: normal bowel sounds, non tender, soft, no organomegaly Extremities: normal range of motion, normal inspection, no pedal edema, other (Mild tenderness to left calf) Neurologic/Psychiatric: training executive II-XII nml as tested, no motor/sensory deficits, alert, normal mood/affect, oriented x 3 Skin: normal color, warm/dry (KERRY GALVAN) Procedures/Interventions Suture Size: 5-0 (KERRY GALVAN) Progress/Results/Core Measures Suspected Sepsis SIRS Temperature: Pulse: Respiratory Rate: Laboratory Tests 06/19/23 11:50: White Blood Count 7.3 Blood Pressure / Mean: Laboratory Tests 06/19/23 11:50: Creatinine 1.02, INR Comment 1.0, Platelet Count 228, Total Bilirubin 0.9 (KERRY GALVAN) Results/Orders Lab Results Laboratory Tests Test 06/19/23 11:50 06/19/23 14:23 Range/Units White Blood Count 7.3 4.3-11.0 10^3/uL Red Blood Count 5.22 4.30-5.52 10^6/uL Hemoglobin 16.1 13.3-17.7 g/dL Hematocrit 47 40-54 % Mean Corpuscular Volume 90 80-99 fL Mean Corpuscular Hemoglobin 31 25-34 pg Mean Corpuscular Hemoglobin Concent 34 32-36 g/dL Red Cell Distribution Width 12.8 10.0-14.5 % Platelet Count 228 130-400 10^3/uL Mean Platelet Volume 8.7 L 9.0-12.2 fL Immature Granulocyte % (Auto) 0 % Neutrophils (%) (Auto) 74 42-75 % Lymphocytes (%) (Auto) 14 12-44 % Monocytes (%) (Auto) 8 0-12 % Eosinophils (%) (Auto) 3 0-10 % Basophils (%) (Auto) 1 0-10 % Neutrophils # (Auto) 5.4 1.8-7.8 10^3/uL Lymphocytes # (Auto) 1.0 1.0-4.0 10^3/uL Monocytes # (Auto) 0.6 0.0-1.0 10^3/uL Eosinophils # (Auto) 0.2 0.0-0.3 10^3/uL Basophils # (Auto) 0.1 0.0-0.1 10^3/uL Immature Granulocyte # (Auto) 0.0 0.0-0.1 10^3/uL Prothrombin Time 13.6 12.2-14.7 SEC INR Comment 1.0 0.8-1.4 Activated Partial Thromboplast Time 28 24-35 SEC Sodium Level 142 135-145 MMOL/L Potassium Level 3.9 3.6-5.0 MMOL/L Chloride Level 107 98-107 MMOL/L Carbon Dioxide Level 24 21-32 MMOL/L Anion Gap 11 5-14 MMOL/L Blood Urea Nitrogen 19 H 7-18 MG/DL Creatinine 1.02 0.60-1.30 MG/DL Estimat Glomerular Filtration Rate 83 BUN/Creatinine Ratio 19 Glucose Level 117 H 70-105 MG/DL Calcium Level 9.7 8.5-10.1 MG/DL Corrected Calcium 9.5 8.5-10.1 MG/DL Magnesium Level 2.2 1.6-2.4 MG/DL Total Bilirubin 0.9 0.1-1.0 MG/DL Aspartate Amino Transf (AST/SGOT) 20 5-34 U/L Alanine Aminotransferase (ALT/SGPT) 28 0-55 U/L Alkaline Phosphatase 103 40-136 U/L Troponin I < 0.028 < 0.028 <0.028 NG/ML B-Type Natriuretic Peptide < 10.0 <100.0 PG/ML Total Protein 7.2 6.4-8.2 GM/DL Albumin 4.3 3.2-4.5 GM/DL Lipase 22 8-78 U/L (GRAEME KELLER MD) Medications Given in ED Current Medications Medications Dose Ordered Sig/Mohit Route Start Time Stop Time Status Last Admin Dose Admin Aspirin 324 mg ONCE ONCE PO 06/19/23 11:45 06/19/23 11:46 DC 06/19/23 12:04 324 MG Iohexol 100 ml ONCE ONCE IV 06/19/23 12:45 06/19/23 12:46 DC 06/19/23 12:48 83 ML Sodium Chloride 100 ml ONCE ONCE IV 06/19/23 12:45 06/19/23 12:46 DC 06/19/23 12:48 80 ML (GRAEME KELLER MD) Vital Signs/I&O 06/19/23 06/19/23 06/19/23 11:36 11:54 15:20 Temp 37.0 Pulse 89 Resp 16 16 B/P (MAP) 157/86 (109) 155/70 Pulse Ox 97 99 O2 Delivery Room Air Room Air Room Air (GRAEME KELLER MD) Vital Signs/I&O Capillary Refill : (KERRY GALVAN) ECG Comment Sinus rhythm, 86 bpm, QRS duration 123 MS, QTc 409 MS (KERRY GALVAN) Departure Communication (PCP) Reviewed previous ER visits, H&P, lab testing. Differential diagnosis PE, ACS, pneumonia, viral syndrome. Patient diagnosed with left lower leg DVT last week. Patient with a nonocclusive left femoral DVT. Currently on Eliquis. aCute onset of substernal chest pain rates pain 2 out of 10 with shortness of breath. States he was in the garage at the time and was not working. According to patient his daughter noted that he was breathing harder. Denies history of similar symptoms. Patient concern for PE. Patient was not tachycardic or hypoxic. Patient blood pressure 157/86. Generalized lab work was ordered as well as cardiac work-up. EKG without evidence of ST elevation or depression or arrhythmia. CT angio of the chest was ordered. Patient CBC, CMP grossly markable. Normal troponin and BNP. Chest x-ray was grossly unremarkable. No evidence of pneumonia, pneumothorax, pleural effusion. CT angio of the chest was negative for PE, pneumonia, pneumothorax. Did note a Subcentimeter left lower lobe pulmonary nodule, indeterminate. Follow-up is recommended. Patient remained asymptomatic during his stay. Patient did receive a full aspirin. Patient with a heart score 3. Does not have significant risk factors. No history of coronary artery disease. Due to his presentation a 3-hour troponin was ordered. Delta troponin was negative . There is no evidence of wheezing. No URI symptoms. At this time due to reassuring cardiac work-up and EKG will suggest outpatient cardiac follow-up. Provided cardiology to follow-up. Suggest follow-up your primary on Wednesday for reevaluation. if any worsening symptoms such as chest pain or shortness of breath to return back to ED. (KERRY GALVAN) Impression Primary Impression: Shortness of breath Disposition: 01 HOME, SELF-CARE Condition: Stable Departure-Patient Inst. Decision time for Depature: 15:04 (KERRY GALVAN) Referrals: JONATHAN MCADAMS MD, CHAD C MD (PCP/Family) Primary Care Physician Patient Instructions: Shortness of Breath, Adult ED Add. Discharge Instructions: If any worsening shortness of breath chest pain return back to ED. Follow-up your PCP in 2 to 3 days for reevaluation All discharge instructions reviewed with patient and/or family. Voiced understanding. ATTENDING PHYSICIAN NOTE: I was physically present as attending physician in the emergency department during the care of this patient, but I was not directly involved in the decision making or delivery of care for this patient. (GRAEME KELLER MD) KERRY GALVAN Jun 19, 2023 11:48 GRAEME KELLER MD Jun 19, 2023 19:21
[2023-06-19 12:09] LABS: BASOPHILS # (AUTO) 0.1 10^3/uL (0.0-0.1); BASOPHILS % (AUTO) 1 % (0-10); EOSINOPHILS # (AUTO) 0.2 10^3/uL (0.0-0.3); EOSINOPHILS % (AUTO) 3 % (0-10); HEMATOCRIT 47 % (40-54); HEMOGLOBIN 16.1 g/dL (13.3-17.7); LYMPHOCYTES % (AUTO) 14 % (12-44); MEAN CORPUSCULAR HEMOGLOBIN 31 pg (25-34); MEAN CORPUSCULAR HGB CONC 34 g/dL (32-36); MEAN CORPUSCULAR VOLUME 90 fL (80-99); MEAN PLATELET VOLUME 8.7 fL (9.0-12.2); MONOCYTES # (AUTO) 0.6 10^3/uL (0.0-1.0); MONOCYTES % (AUTO) 8 % (0-12); NEUTROPHILS # (AUTO) 5.4 10^3/uL (1.8-7.8); NEUTROPHILS % (AUTO) 74 % (42-75); PLATELET COUNT 228 10^3/uL (130-400); WHITE BLOOD COUNT 7.3 10^3/uL (4.3-11.0)
[2023-06-19 12:20] LABS: ALBUMIN 4.3 GM/DL (3.2-4.5); CHLORIDE 107 MMOL/L (98-107); POTASSIUM 3.9 MMOL/L (3.6-5.0); PROTHROMBIN TIME PATIENT 13.6 SEC (12.2-14.7); SODIUM 142 MMOL/L (135-145)
[2023-06-19 12:21] LABS: CALCIUM 9.7 MG/DL (8.5-10.1)
[2023-06-19 12:22] LABS: GLUCOSE 117 MG/DL (70-105); TOTAL PROTEIN 7.2 GM/DL (6.4-8.2)
[2023-06-19 12:24] LABS: BILIRUBIN,TOTAL 0.9 MG/DL (0.1-1.0); CARBON DIOXIDE 24 MMOL/L (21-32)
[2023-06-19 12:26] LABS: ALKALINE PHOSPHATASE 103 U/L (40-136); CREATININE SERUM 1.02 MG/DL (0.60-1.30); GFR ESTIMATED 83
[2023-06-19 12:27] LABS: BUN/CREATININE RATIO 19
[2023-06-19 12:29] LABS: ALANINE AMINOTRANSFERASE 28 U/L (0-55); MAGNESIUM 2.2 MG/DL (1.6-2.4)
[2023-06-19 12:30] LABS: LIPASE 22 U/L (8-78)
[2023-06-19] MEDS ORDERED: IOHEXOL 350 MG/ML 100 ML (OMNIPAQUE 350) VIAL IV ONE (12:45)
[2023-06-19] MEDS ORDERED: NS 100 ML (IVPB) BAG IV ONE (12:45)
[2023-06-19] MEDS ORDERED: HOLD METFORMIN - RECEIVED CONTRAST 20 ML VIAL IV SCH (12:45)
--- NOTE | 2023-06-19 12:57 | Diagnostic Imaging Report ---
Indication: Chest pain. Time of Exam: 12:30 PM Findings: The heart size is normal. The pulmonary vascularity is unremarkable. The lungs are clear. No infiltrate, effusion or pneumothorax is detected. Impression: No acute cardiopulmonary process is detected. Dictated by: Dictated on workstation # [id number]
--- NOTE | 2023-06-19 13:03 | Diagnostic Imaging Report ---
INDICATION: Chest pain and known DVT left leg with shortness of breath. TECHNIQUE: After intravenous administration of contrast, thin section axial CT angiography of the chest was performed. 3D MIP reconstructions were made. All CT scans use one or more of the following dose optimizing techniques: automated exposure control, MA and/or KvP adjustment based on a patient size and exam type, or iterative reconstruction. Evaluation of the pulmonary arterial system is without evidence of thromboembolism. No filling defects are seen within central, lobar or segmental branches. Thoracic aorta is normal caliber. There is no dissection. No pericardial or pleural fluid is identified. There is a small nodule left lower lobe laterally subpleural in location measuring 8 mm. Otherwise lungs are clear. Upper abdomen demonstrates multiple low-attenuation lesions within the liver suggestive of cysts. IMPRESSION: 1. No evidence of pulmonary embolism or acute aortic disease. 2. Subcentimeter left lower lobe pulmonary nodule, indeterminate. Followup based on Fleischner Society criteria would be recommended. 3. Probable hepatic cysts. Dictated by: Dictated on workstation # [id number]
[2023-06-19 15:20] VITALS: BP 155/70
== END 2023-06-19 15:20 | disposition home or self-care (01) ==
LOC: EDUNIT# 11:28 → ER 11:30
DX: R06.02 Shortness of breath (principal); R07.2 Precordial pain; R91.8 Other nonspecific abnormal finding of lung field; I82.412 Acute embolism and thrombosis of left femoral vein; Z79.01 Long term (current) use of anticoagulants
CPT/HCPCS: 36415; 71045; 71275; 80053; 83690; 83735; 83880; 84484; 85025; 85610; 85730; 93005; 93041

== ENCOUNTER → 2023-07-07 | Outpatient (CLI) | payer OTHER | LOC: PREOP 06:05 | PROVIDERS: ATTEND Internal Medicine | DX: Z01.818 Encounter for other preprocedural examination (principal) ==